=== PATIENT | male | born 2000 | race Hispanic/Latino ===

== ENCOUNTER 2018-07-10 18:42 | Emergency (ER) | payer OTHER ==
[~2018-07-10] VITALS: Ht 165.1 cm; Wt 113.4 kg
--- OUTSIDE RECORDS SUMMARY | ~2018-07-10 | XMS ---
Demographics + + + | Address | [address] [place] [address] [address] | | | [place] [address] | + + + | Home Phone | | + + + | Preferred Language | Unknown | + + + | Marital Status | Never | + + + | Holiness Affiliation | Unknown | + + + | Race | White | + + + | Ethnic Group | or | + + + Author + + + | Author | [facility] | + + + | Organization | [facility] | + + + | Address | [address] | | | [place] [address] | + + + | Phone | | + + + Care Team Providers + + + + | Care Vacuum Cleaner Mechanic Name | Role | Phone | + + + + | Nhung Escalona PCP | | + + + + | Martina Millerlaya South | PreferredProvider | | + + + + Allergies and Adverse Reactions + + + + | Name | Reaction | Notes | + + + + | Zithromax Jacqueline | | | + + + + | PENICILLINS | | | + + + + | Zithromax | Other | - [employer] 11/01/2015 | + + + + | Other Drug Allergies | Rash / Hives | PENICILLIN - [employer] | | | | 11/01/2015 | + + + + | Hay | | - [employer] 11/01/2015 | + + + + Plan of Treatment + + + + + + | Planned | Comments | Planned Date | Planned Time | Plan/Goal | | Activity | | | | | + + + + + + | Lipid panel | | 11/01/2015 | 12:00 AM | | + + + + + + | Comprehensive | | 11/01/2015 | 12:00 AM | | | metabolic panel | | | | | | This panel | | | | | | must include | | | | | | the follow | | | | | + + + + + + | Blood count; | | 11/01/2015 | 12:00 AM | | | complete (CBC), | | | | | | automated | | | | | | (Hgb, Hct, RBC, | | | | | | WBC and p | | | | | + + + + + + | Thyroxine; free | | 11/01/2015 | 12:00 AM | | + + + + + + | Thyroid | | 11/01/2015 | 12:00 AM | | | stimulating | | | | | | hormone (TSH) | | | | | + + + + + + | Insulin; total | | 11/01/2015 | 12:00 AM | | | fasting | | | | | + + + + + + | Vitamin D | | 11/01/2015 | 12:00 AM | | + + + + + + | Hemoglobin A1C | | 11/01/2015 | 12:00 AM | | + + + + + + | PULSE OXIMETRY | | 01/01/2017 | 12:00 AM | | | (1 or more | | | | | | readings) | | | | | + + + + + + Medications +---------+ | | +---------+ + + + + + + | Name | Start Date | Expiration Date | SIG | Comments | + + + + + + | amoxicillin 400 | 03/06/2010 | 03/16/2010 | take 10 | | | mg/5 mL oral | | | milliliters by | | | suspension for | | | oral route 2 | | | reconstitution | | | times a day for | | | | | | 10 days | | + + + + + + | Cortisporin | 03/27/2011 | 04/03/2011 | instill in | | | 3.5-10,000-1 | | | affected ear 3 | | | mg/mL-unit/mL-% | | | drops by otic | | | otic | | | route 3 times a | | | drops,suspensio | | | day for 7 days | | | n | | | | | + + + + + + | cephalexin 500 | 06/27/2011 | 07/07/2011 | take 1 capsule | | | mg oral capsule | | | by oral route 3 | | | | | | times a day | | | | | | for 10 days | | + + + + + + | Polytrim 10,000 | 07/23/2011 | 08/13/2011 | instill 2 drops | | | unit- 1 mg/mL | | | to L eye TID x | | | ophthalmic | | | 7 days | | | drops | | | | | + + + + + + | Bactrim 400-80 | 08/13/2011 | 08/23/2011 | take 1 tablet | | | mg oral tablet | | | by oral route 2 | | | | | | times a day | | | | | | for 10 days | | + + + + + + | acetaminophen-c | 02/09/2013 | 02/16/2013 | take 5 - 7.5mls | | | odeine 120 | | | po Qhs prn | | | mg-12 mg /5 mL | | | Cough | | | (5 mL) oral | | | | | | solution | | | | | + + + + + + | erythromycin | 04/15/2013 | 04/10/2014 | apply a thin | | | with ethanol 2 | | | layer to the | | | % topical | | | affected | | | solution | | | area(s) by | | | | | | topical route 2 | | | | | | times per day | | | | | | in the morning | | | | | | and evening | | + + + + + + | Vitamin D2 | 04/15/2013 | 06/10/2013 | take 1 capsule | | | 50,000 unit | | | by oral route | | | oral capsule | | | once weekly for | | | | | | 8 weeks | | + + + + + + | ibuprofen 600 | 09/21/2013 | 09/28/2013 | Take 1 tablet | | | mg oral tablet | | | (600 mg) by | | | | | | oral route 2 | | | | | | times daily | | | | | | with breakfast | | | | | | and dinner. | | + + + + + + | cephalexin 500 | 01/13/2015 | 01/23/2015 | take 1 tablet | | | mg oral tablet | | | by oral route 3 | | | | | | times a day | | | | | | for 10 days | | + + + + + + | Singulair 10 mg | 11/01/2015 | 01/30/2016 | take 1 tablet | | | oral tablet | | | (10 mg) by oral | | | | | | route once | | | | | | daily in the | | | | | | evening for 30 | | | | | | days | | + + + + + + | fluticasone 50 | 11/01/2015 | 01/30/2016 | inhale 1 spray | | | mcg/actuation | | | (50 mcg) in | | | nasal | | | each nostril by | | | spray,suspensio | | | intranasal | | | n | | | route once | | | | | | daily for 30 | | | | | | days | | + + + + + + | Ventolin HFA 90 | 11/01/2015 | 02/29/2016 | 2 puffs every | | | mcg/actuation | | | 4-6 hrs prn for | | | inhalation HFA | | | shortness of | | | aerosol inhaler | | | breath | | + + + + + + | cefprozil 500 | 06/26/2016 | 07/06/2016 | take 1 tablet | | | mg oral tablet | | | (500 mg) by | | | | | | oral route | | | | | | every 12 hours | | | | | | for 10 days | | + + + + + + + + | Discontinued | + + + + + + + + | Name | Start Date | Discontinued | SIG | Comments | | | | Date | | | + + + + + + | Zithromax Z-Richy | 02/05/2010 | 02/08/2010 | take 2 tablets | vomiting | | 250 mg oral | | | (500 mg) by | | | tablet | | | oral route once | | | | | | daily for 1 | | | | | | day then 1 | | | | | | tablet (250 mg) | | | | | | by oral route | | | | | | once daily for | | | | | | 4 days | | + + + + + + | Miralax 17 | 03/05/2011 | 02/04/2016 | take 17 gram | | | gram/dose oral | | | mixed with 8 | | | powder | | | oz. water or | | | | | | juice by oral | | | | | | route once | | | | | | daily | | + + + + + + | omeprazole 20 | 01/27/2013 | 02/04/2016 | take 1 capsule | | | mg oral | | | (20 mg) by oral | | | capsule,delayed | | | route twice | | | release(/EC) | | | daily 30 | | | | | | minutes to 1 | | | | | | hour before a | | | | | | meal | | + + + + + + Problem List + +--------+ + | Description | Status | Onset | + +--------+ + | Enuresis | Active | 02/05/2010 | + +--------+ + | Acne | Active | 06/10/2011 | + +--------+ + | Carpal Bone Fracture, | Active | 08/27/2011 | | Closed | | | + +--------+ + | Gastroesophageal reflux | Active | 01/27/2013 | + +--------+ + | Obesity | Active | 01/27/2013 | + +--------+ + | Irritable bowel syndrome | Active | 04/15/2013 | + +--------+ + | Costochondritis | Active | 09/21/2013 | + +--------+ + | Elevated blood pressure | Active | 02/04/2016 | + +--------+ + Vital Signs +-----+-----+-----+-----+-----+-----+-----+-----+-----+----+-----+-----+-----+-----+ | Charles | Louis | BP- | BP- | HR( | RR( | Tem | WT | HT | HC | BMI | BSA | BMI | O2 | | e | e | Sys | Debra | bpm | rpm | p | | | | | | | Sat | | | | (mm | (mm | ) | ) | | | | | | | Per | (%) | | | | [Hg | [Hg | | | | | | | | | eric | | | | | ] | ]) | | | | | | | | | til | | | | | | | | | | | | | | | e | | +-----+-----+-----+-----+-----+-----+-----+-----+-----+----+-----+-----+-----+-----+ | 10/ | 10: | 114 | 70 | 80 | 30 | 98. | 205 | | | | | | 96 | | 11/ | 00: | | mmH | bpm | rpm | 2 F | .5 | | | | | | % | | 201 | 00 | mmH | g | | | | lbs | | | | | | | | 7 | AM | g | | | | | | | | | | | | +-----+-----+-----+-----+-----+-----+-----+-----+-----+----+-----+-----+-----+-----+ | 4/5 | 11: | 128 | 72 | 108 | 22 | 98. | 190 | 65 | | 31. | 1.9 | 97. | 98 | | /20 | 41: | | mmH | | rpm | 2 F | | in | | 617 | 881 | 8 % | % | | 17 | 00 | mmH | g | bpm | | | lbs | | | 3 | | | | | | AM | g | | | | | | | | kg/ | m | | | | | | | | | | | | | | m | | | | +-----+-----+-----+-----+-----+-----+-----+-----+-----+----+-----+-----+-----+-----+ | 12/ | 11: | 128 | 72 | 83 | 30 | 99 | 182 | | | | | | 99 | | 7/2 | 22: | | mmH | bpm | rpm | F | | | | | | | % | | 016 | 00 | mmH | g | | | | lbs | | | | | | | | | AM | g | | | | | | | | | | | | +-----+-----+-----+-----+-----+-----+-----+-----+-----+----+-----+-----+-----+-----+ | 11/ | 10: | 130 | 70 | | | | | | | | | | | | 21/ | 07: | | mmH | | | | | | | | | | | | 201 | 00 | mmH | g | | | | | | | | | | | | 6 | AM | g | | | | | | | | | | | | +-----+-----+-----+-----+-----+-----+-----+-----+-----+----+-----+-----+-----+-----+ | 11/ | 9:3 | 138 | 90 | 94 | 20 | 97. | 194 | 65. | | 32. | 2.0 | 98. | 98 | | 21/ | 6:0 | | mmH | bpm | rpm | 6 F | | 25 | | 04 | 1 | 1 % | % | | 201 | 0 | mmH | g | | | | lbs | in | | kg/ | m2 | | | | 6 | AM | g | | | | | | | | m2 | | | | +-----+-----+-----+-----+-----+-----+-----+-----+-----+----+-----+-----+-----+-----+ | 11/ | 11: | 130 | 82 | 85 | 20 | 97. | 183 | 65. | | 30. | 1.9 | 97 | 97 | | 12/ | 04: | | mmH | bpm | rpm | 8 F | | 1 | | 359 | 526 | % | % | | 201 | 00 | mmH | g | | | | lbs | in | | | | | | | 6 | AM | g | | | | | | | | kg/ | m | | | | | | | | | | | | | | m | | | | +-----+-----+-----+-----+-----+-----+-----+-----+-----+----+-----+-----+-----+-----+ | 8/1 | 9:3 | 110 | 60 | 67 | 20 | 98 | 173 | 65. | | 28. | 1.9 | 94. | 99 | | 0/2 | 3:0 | | mmH | bpm | rpm | F | | 5 | | 35 | 0 | 9 % | % | | 016 | 0 | mmH | g | | | | lbs | in | | kg/ | m2 | | | | | AM | g | | | | | | | | m2 | | | | +-----+-----+-----+-----+-----+-----+-----+-----+-----+----+-----+-----+-----+-----+ | 3/9 | 11: | 106 | 70 | 80 | 28 | 98. | 173 | 65. | | 28. | 1.9 | 95. | 98 | | /20 | 10: | | mmH | bpm | rpm | 4 F | | 25 | | 568 | 007 | 6 % | % | | 16 | 00 | mmH | g | | | | lbs | in | | 2 | | | | | | AM | g | | | | | | | | kg/ | m | | | | | | | | | | | | | | m | | | | +-----+-----+-----+-----+-----+-----+-----+-----+-----+----+-----+-----+-----+-----+ | 10/ | 10: | 120 | 72 | 82 | 18 | 97. | 164 | 65. | | 27. | 1.8 | 93. | | | 23/ | 18: | | mmH | bpm | rpm | 9 F | | 35 | | 00 | 5 | 4 % | | | 201 | 00 | mmH | g | | | | lbs | in | | kg/ | m2 | | | | 5 | AM | g | | | | | | | | m2 | | | | +-----+-----+-----+-----+-----+-----+-----+-----+-----+----+-----+-----+-----+-----+ | 3/4 | 8:3 | 118 | 70 | 80 | 16 | 97. | 146 | 65. | | 24. | 1.7 | 85. | 98 | | /20 | 4:0 | | mmH | bpm | rpm | 6 F | | 25 | | 109 | 461 | 2 % | % | | 15 | 0 | mmH | g | | | | lbs | in | | 6 | | | | | | AM | g | | | | | | | | kg/ | m | | | | | | | | | | | | | | m | | | | +-----+-----+-----+-----+-----+-----+-----+-----+-----+----+-----+-----+-----+-----+ | 7/1 | 2:0 | 120 | 68 | 90 | 20 | 99. | 159 | 64. | | 26. | 1.8 | 94. | 98 | | /20 | 7:0 | | mmH | bpm | rpm | 5 F | | 9 | | 54 | 2 | 3 % | % | | 14 | 0 | mmH | g | | | | lbs | in | | kg/ | m2 | | | | | PM | g | | | | | | | | m2 | | | | +-----+-----+-----+-----+-----+-----+-----+-----+-----+----+-----+-----+-----+-----+ | 1/2 | 10: | 118 | 68 | 90 | 20 | 98. | 172 | 64. | | 28. | 1.8 | 97. | 98 | | 3/2 | 57: | | mmH | bpm | rpm | 3 F | | 7 | | 888 | 872 | 3 % | % | | 014 | 00 | mmH | g | | | | lbs | in | | | | | | | | AM | g | | | | | | | | kg/ | m | | | | | | | | | | | | | | m | | | | +-----+-----+-----+-----+-----+-----+-----+-----+-----+----+-----+-----+-----+-----+ | 11/ | 9:1 | 118 | 68 | 80 | 20 | 98. | | | | | | | 98 | | 19/ | 8:0 | | mmH | bpm | rpm | 1 F | | | | | | | % | | 201 | 0 | mmH | g | | | | | | | | | | | | 3 | AM | g | | | | | | | | | | | | +-----+-----+-----+-----+-----+-----+-----+-----+-----+----+-----+-----+-----+-----+ | 11/ | 11: | 120 | 74 | 100 | 20 | 98. | 170 | 64. | | 28. | 1.8 | 97. | 98 | | 6/2 | 24: | | mmH | | rpm | 1 F | | 5 | | 729 | 733 | 3 % | % | | 013 | 00 | mmH | g | bpm | | | lbs | in | | 5 | | | | | | AM | g | | | | | | | | kg/ | m | | | | | | | | | | | | | | m | | | | +-----+-----+-----+-----+-----+-----+-----+-----+-----+----+-----+-----+-----+-----+ | 10/ | 2:3 | | | 80 | 16 | 98. | 173 | 64 | | 29. | 1.8 | 97. | | | 8/2 | 5:0 | | | bpm | rpm | 2 F | | in | | 70 | 8 | 9 % | | | 013 | 0 | | | | | | lbs | | | kg/ | m2 | | | | | PM | | | | | | | | | m2 | | | | +-----+-----+-----+-----+-----+-----+-----+-----+-----+----+-----+-----+-----+-----+ | 5/1 | 11: | 142 | 68 | 120 | 20 | 98. | 177 | 64. | | 30. | 1.9 | 98. | 98 | | 0/2 | 46: | | mmH | | rpm | 3 F | | 3 | | 098 | 085 | 2 % | % | | 013 | 00 | mmH | g | bpm | | | lbs | in | | 8 | | | | | | AM | g | | | | | | | | kg/ | m | | | | | | | | | | | | | | m | | | | +-----+-----+-----+-----+-----+-----+-----+-----+-----+----+-----+-----+-----+-----+ | 65 | 10: | 122 | 68 | 70 | 18 | 96. | 147 | | | | | | | | /20 | 21: | | mmH | bpm | rpm | 7 F | .75 | | | | | | | | 12 | 00 | mmH | g | | | | | | | | | | | | | AM | g | | | | | lbs | | | | | | | +-----+-----+-----+-----+-----+-----+-----+-----+-----+----+-----+-----+-----+-----+ | 5 | 12: | 132 | 70 | 105 | 20 | 98. | 145 | 62 | | 26. | 1.6 | 96. | 97 | | 6/2 | 55: | | mmH | | rpm | 3 F | | in | | 520 | 962 | 5 % | % | | 012 | 00 | mmH | g | bpm | | | lbs | | | 6 | | | | | | PM | g | | | | | | | | kg/ | m | | | | | | | | | | | | | | m | | | | +-----+-----+-----+-----+-----+-----+-----+-----+-----+----+-----+-----+-----+-----+ | 5/1 | 10: | | | 60 | 16 | 98. | 142 | 62 | | 25. | 1.6 | 96 | | | /20 | 26: | | | bpm | rpm | 2 F | | in | | 97 | 8 | % | | | 12 | 00 | | | | | | lbs | | | kg/ | m2 | | | | | AM | | | | | | | | | m2 | | | | +-----+-----+-----+-----+-----+-----+-----+-----+-----+----+-----+-----+-----+-----+ | 4/5 | 11: | | | 84 | 20 | 98. | 144 | | | | | | 96 | | /20 | 26: | | | bpm | rpm | 6 F | | | | | | | % | | 12 | 00 | | | | | | lbs | | | | | | | | | AM | | | | | | | | | | | | | +-----+-----+-----+-----+-----+-----+-----+-----+-----+----+-----+-----+-----+-----+ | 3/1 | 11: | | | 100 | 20 | 99. | 140 | | | | | | 99 | | 9/2 | 25: | | | | rpm | 5 F | .5 | | | | | | % | | 012 | 00 | | | bpm | | | lbs | | | | | | | | | AM | | | | | | | | | | | | | +-----+-----+-----+-----+-----+-----+-----+-----+-----+----+-----+-----+-----+-----+ | 1/4 | 1:0 | | | 96 | 18 | 99. | 138 | | | | | | 96 | | /20 | 1:0 | | | bpm | rpm | 6 F | | | | | | | % | | 12 | 0 | | | | | | lbs | | | | | | | | | PM | | | | | | | | | | | | | +-----+-----+-----+-----+-----+-----+-----+-----+-----+----+-----+-----+-----+-----+ | 12/ | 11: | 112 | 66 | 70 | 20 | 99. | 131 | | | | | | | | 13/ | 07: | | mmH | bpm | rpm | 2 F | .75 | | | | | | | | 201 | 00 | mmH | g | | | | | | | | | | | | 1 | AM | g | | | | | lbs | | | | | | | +-----+-----+-----+-----+-----+-----+-----+-----+-----+----+-----+-----+-----+-----+ | 12/ | 1:0 | | | 95 | 20 | 99 | 135 | | | | | | 99 | | 1/2 | 4:0 | | | bpm | rpm | F | | | | | | | % | | 011 | 0 | | | | | | lbs | | | | | | | | | PM | | | | | | | | | | | | | +-----+-----+-----+-----+-----+-----+-----+-----+-----+----+-----+-----+-----+-----+ | 11/ | 3:4 | | | 92 | 16 | 99. | 134 | | | | | | 98 | | 16/ | 8:0 | | | bpm | rpm | 5 F | | | | | | | % | | 201 | 0 | | | | | | lbs | | | | | | | | 1 | PM | | | | | | | | | | | | | +-----+-----+-----+-----+-----+-----+-----+-----+-----+----+-----+-----+-----+-----+ | 4/1 | 9:5 | | | 100 | 18 | 100 | 117 | | | | | | 98 | | /20 | 3:0 | | | | rpm | F | | | | | | | % | | 11 | 0 | | | bpm | | | lbs | | | | | | | | | AM | | | | | | | | | | | | | +-----+-----+-----+-----+-----+-----+-----+-----+-----+----+-----+-----+-----+-----+ | 2/1 | 11: | 118 | 62 | 80 | 20 | 98. | 112 | | | | | | | | 1/2 | 21: | | mmH | bpm | rpm | 6 F | | | | | | | | | 011 | 00 | mmH | g | | | | lbs | | | | | | | | | AM | g | | | | | | | | | | | | +-----+-----+-----+-----+-----+-----+-----+-----+-----+----+-----+-----+-----+-----+ | 12/ | 3:2 | 108 | 62 | 80 | 16 | 98. | 108 | 55. | | 24. | 1.3 | 96 | | | 14/ | 6:0 | | mmH | bpm | rpm | 1 F | .75 | 8 | | 56 | 9 | % | | | 201 | 0 | mmH | g | | | | | in | | kg/ | m2 | | | | 0 | PM | g | | | | | lbs | | | m2 | | | | +-----+-----+-----+-----+-----+-----+-----+-----+-----+----+-----+-----+-----+-----+ | 11/ | 9:2 | | | 90 | 20 | 98. | 105 | 56 | | 23. | 1.3 | 94. | | | 15/ | 6:0 | | | bpm | rpm | 1 F | | in | | 540 | 718 | 7 % | | | 201 | 0 | | | | | | lbs | | | 3 | | | | | 0 | AM | | | | | | | | | kg/ | m | | | | | | | | | | | | | | m | | | | +-----+-----+-----+-----+-----+-----+-----+-----+-----+----+-----+-----+-----+-----+ Social History + + + + | Name | Description | Comments | + + + + | Exercises Daily | | - [employer] 11/01/2015 | + + + + | In High School | | - [employer] 11/01/2015 | + + + + | Alcohol | Current some day | - [employer] 11/01/2015 | + + + + | Other Substance Use | | NONE - [employer] 11/01/2015 | + + + + | Lives With | | cooper Mustafa (Victor)) | | | | Rosa Tolbert and Candido, | | | | José | + + + + | Tobacco | Never smoker | | + + + + History of Procedures + + + + | Date Ordered | Description | Order Status | + + + + | 06/22/2010 12:00 AM | IAATACHOADOO STREPTOCOCCUS | Reviewed | | | GROUP A | | + + + + | 05/23/2011 12:00 AM | CULTURE SCREEN ONLY | Returned | + + + + | 03/05/2011 12:00 AM | X-RAY EXAM OF ABDOMEN | Reviewed | + + + + | 05/04/2010 12:00 AM | URINALYSIS NONAUTO W/O | Reviewed | | | SCOPE | | + + + + | 05/04/2010 12:00 AM | URINE CULTURE/COLONY COUNT | Reviewed | + + + + | 06/22/2010 12:00 AM | MEASURE BLOOD OXYGEN LEVEL | Reviewed | + + + + | 03/11/2011 12:00 AM | CULTURE SCREEN ONLY | Returned | + + + + | 02/06/2011 12:00 AM | INFLUENZA 3YR & UP (VFC) | Reviewed | + + + + | 02/06/2011 12:00 AM | MEASURE BLOOD OXYGEN LEVEL | Reviewed | + + + + | 06/10/2011 12:00 AM | MEASURE BLOOD OXYGEN LEVEL | Reviewed | + + + + | 06/27/2011 12:00 AM | MEASURE BLOOD OXYGEN LEVEL | Reviewed | + + + + | 02/21/2011 12:00 AM | MEASURE BLOOD OXYGEN LEVEL | Reviewed | + + + + | 05/25/2014 12:00 AM | VISUAL ACUITY SCREEN | Reviewed | + + + + | 08/07/2011 12:00 AM | CT HEAD/BRAIN W/O DYE | Reviewed | + + + + | 08/27/2011 12:00 AM | ADAM WRAP LESS 3 IN WIDE | Reviewed | + + + + | 08/27/2011 12:00 AM | X-RAY EXAM OF HAND | Reviewed | + + + + | 08/27/2011 12:00 AM | Alexander Melgoza | Reviewed | + + + + | 07/31/2012 12:00 AM | MEASURE BLOOD OXYGEN LEVEL | Reviewed | + + + + | 05/31/2015 12:00 AM | INFLUENZA VAC 4 VALENT | Reviewed | | | PRSRV FREE 3 YRS PLUS IM | | + + + + | 05/31/2015 12:00 AM | MENINGOCOCCAL CONJ VACCINE | Reviewed | | | QUADRAVALENT IM | | + + + + | 05/31/2015 12:00 AM | HUMAN PAPILLOMA VIRUS | Reviewed | | | VACCINE QUADRIV 3 DOSE IM | | + + + + | 05/31/2015 12:00 AM | X-RAY EXAM OF ANKLE | Reviewed | + + + + | 02/05/2010 12:00 AM | INFLUENZA VIRUS VACCINE | Reviewed | | | SPLIT VIRUS 3/> YRS IM | | + + + + | 12/30/2012 12:00 AM | MEASURE BLOOD OXYGEN LEVEL | Reviewed | + + + + | 12/29/2012 12:00 AM | X-RAY EXAM OF ANKLE | Reviewed | + + + + | 01/27/2013 12:00 AM | INFLUENZA 3YR & UP (VFC) | Reviewed | + + + + | 01/27/2013 12:00 AM | ASSAY OF FREE THYROXINE | Reviewed | + + + + | 01/27/2013 12:00 AM | GLYCOSYLATED HEMOGLOBIN | Reviewed | | | TEST | | + + + + | 02/09/2013 12:00 AM | MEASURE BLOOD OXYGEN LEVEL | Reviewed | + + + + | 02/03/2016 12:00 AM | MEASURE BLOOD OXYGEN LEVEL | Reviewed | + + + + | 02/12/2016 12:00 AM | MEASURE BLOOD OXYGEN LEVEL | Reviewed | + + + + | 01/27/2013 12:00 AM | COMPREHEN METABOLIC PANEL | Reviewed | + + + + | 01/27/2013 12:00 AM | ASSAY THYROID STIM HORMONE | Reviewed | + + + + | 01/27/2013 12:00 AM | ASSAY OF INSULIN | Reviewed | + + + + | 02/29/2016 12:00 AM | MEASURE BLOOD OXYGEN LEVEL | Reviewed | + + + + | 11/01/2015 12:00 AM | HEALTH RISK ASSESSMENT TEST | Reviewed | + + + + | 11/01/2015 12:00 AM | BRIEF EMOTIONAL/BEHAV ASSMT | Reviewed | + + + + | 11/01/2015 12:00 AM | Meningococcal B (VFC) | Reviewed | + + + + | 11/01/2015 12:00 AM | HUMAN PAPILLOMA VIRUS | Reviewed | | | VACCINE QUADRIV 3 DOSE IM | | + + + + | 01/27/2013 12:00 AM | FLUORESCENT ANTIBODY TITER | Reviewed | + + + + | 01/27/2013 12:00 AM | VITAMIN D 25 HYDROXY | Reviewed | + + + + | 06/26/2016 12:00 AM | MEASURE BLOOD OXYGEN LEVEL | Reviewed | + + + + | 01/27/2013 12:00 AM | LIPID PANEL | Reviewed | + + + + | 01/27/2013 12:00 AM | COMPLETE CBC W/AUTO DIFF | Reviewed | | | WBC | | + + + + | 01/27/2013 12:00 AM | FLUORESCENT ANTIBODY SCREEN | Reviewed | + + + + | 03/11/2011 12:00 AM | IAADIADOO STREPTOCOCCUS | Reviewed | | | GROUP A | | + + + + | 01/27/2013 12:00 AM | IMMUNOASSAY NONANTIBODY | Reviewed | + + + + | 09/21/2013 12:00 AM | MEASURE BLOOD OXYGEN LEVEL | Reviewed | + + + + | 05/23/2011 12:00 AM | IAADIADOO STREPTOCOCCUS | Reviewed | | | GROUP A | | + + + + | 03/06/2010 12:00 AM | MENINGOCOCCAL CONJ VACCINE | Reviewed | | | QUADRAVALENT IM | | + + + + Results Summary + + + | Date and Description | Results | + + + | 05/04/2010 12:00 AM | RESULT #1 05/05/2010 AM RESULT #1 no | | | growth after overnight incubation RESULT | | | #2 05/06/2010 AM RESULT #2 no growth after | | | 2 days incubation | + + + | 01/28/2013 8:57 AM | CHOLESTEROL 197 TRIGLYCERIDES 105 HDL 39.5 | | | LDL 137 VLDL 21 CHOL/HDL 5.0 NON-HDL CHOL | | | 158 FREE T4 1.32 TSH, 3rd GEN. 1.70 | | | SODIUM 140 POTASSIUM 4.0 CHLORIDE 103 | | | CARBON DIOXIDE 22 ANION GAP 19.0 GLUCOSE | | | 92 UREA NITROGEN 14 CREATININE, SERUM 0.82 | | | GFR ESTIMATION NOT PERFORMED | | | BUN/CREAT.RATIO 17.1 CALCIUM 9.7 AST(SGOT) | | | 22 ALT(SGPT) 19 ALKALINE PHOS 165 | | | BILIRUBIN, TOTAL 0.7 PROTEIN 7.1 ALBUMIN | | | 4.6 GLOBULIN 2.5 A/G RATIO 1.8 HEMOGLOBIN | | | A1C 5.6 EST AVG GLUCOSE 114 INSULIN, | | | FASTING 14.55 VITAMIN D 25-OH 16 WBC 5.4 | | | RBC 5.57 HEMOGLOBIN 15.5 HEMATOCRIT 45.5 | | | MCV 81.6 RDW 14.1 MCH 28 MCHC 34 PLATELET | | | COUNT 222 NEUTROPHILS 54.7 LYMPHOCYTES | | | 33.4 MONOCYTES 6.1 EOSINOPHILS 5.3 | | | BASOPHILS 0.5 tTG SCREEN 3 ENDOMYSIAL IgA | | | NOT DONE RETICULIN SCREEN <1:5 RETICULIN | | | AB, IgA Not Done GLIADIN AB, IgG 2 GLIADIN | | | AB, IgA >100 | + + + History Of Immunizations +-------+-------+-------+------+-------+-------+-------+-------+-------+-------+-----+ | Name | Date | Mfg | Mfg | Trade | Lot# | Route | Inj | Vis | Vis | CVX | | | Admin | Name | Code | Name | | | | Given | Pub | | +-------+-------+-------+------+-------+-------+-------+-------+-------+-------+-----+ | DTaP | 10/13/ | Not | NE | Not | | Not | Not | | | 999 | | | 1999 | Enter | | Enter | | Enter | Enter | 001 | 001 | | | | | ed | | ed | | ed | ed | | | | +-------+-------+-------+------+-------+-------+-------+-------+-------+-------+-----+ | DTaP | 07/09/ | Not | NE | Not | | Not | Not | 0 | | 999 | | | 2000 | Enter | | Enter | | Enter | Enter | 001 | 001 | | | | | ed | | ed | | ed | ed | | | | +-------+-------+-------+------+-------+-------+-------+-------+-------+-------+-----+ | DTaP | 08/06/ | Not | NE | Not | | Not | Not | | | 999 | | | 2000 | Enter | | Enter | | Enter | Enter | 001 | 001 | | | | | ed | | ed | | ed | ed | | | | +-------+-------+-------+------+-------+-------+-------+-------+-------+-------+-----+ | DTaP | 04/08/ | Not | NE | Not | | Not | Not | | | 999 | | | 2001 | Enter | | Enter | | Enter | Enter | 001 | 001 | | | | | ed | | ed | | ed | ed | | | | +-------+-------+-------+------+-------+-------+-------+-------+-------+-------+-----+ | DTaP | | Not | NE | Not | | Not | Not | | | 999 | | | 002 | Enter | | Enter | | Enter | Enter | 001 | 001 | | | | | ed | | ed | | ed | ed | | | | +-------+-------+-------+------+-------+-------+-------+-------+-------+-------+-----+ | Tdap | | Not | NE | Not | | Not | Not | | | 999 | | | 009 | Enter | | Enter | | Enter | Enter | 001 | 001 | | | | | ed | | ed | | ed | ed | | | | +-------+-------+-------+------+-------+-------+-------+-------+-------+-------+-----+ | Hib | 10/13/ | Not | NE | Not | | Not | Not | 0 | | 999 | | | 1999 | Enter | | Enter | | Enter | Enter | 001 | 001 | | | | | ed | | ed | | ed | ed | | | | +-------+-------+-------+------+-------+-------+-------+-------+-------+-------+-----+ | Hib | 07/09/ | Not | NE | Not | | Not | Not | 0 | | 999 | | | 2000 | Enter | | Enter | | Enter | Enter | 001 | 001 | | | | | ed | | ed | | ed | ed | | | | +-------+-------+-------+------+-------+-------+-------+-------+-------+-------+-----+ | Hib | 08/06/ | Not | NE | Not | | Not | Not | | | 999 | | | 2000 | Enter | | Enter | | Enter | Enter | 001 | 001 | | | | | ed | | ed | | ed | ed | | | | +-------+-------+-------+------+-------+-------+-------+-------+-------+-------+-----+ | Hib | 04/08/ | Not | NE | Not | | Not | Not | | | 999 | | | 2001 | Enter | | Enter | | Enter | Enter | 001 | 001 | | | | | ed | | ed | | ed | ed | | | | +-------+-------+-------+------+-------+-------+-------+-------+-------+-------+-----+ | HepB | | Not | NE | Not | | Not | Not | | | 999 | | | 999 | Enter | | Enter | | Enter | Enter | 001 | 001 | | | | | ed | | ed | | ed | ed | | | | +-------+-------+-------+------+-------+-------+-------+-------+-------+-------+-----+ | HepB | 10/13/ | Not | NE | Not | | Not | Not | | | 999 | | | 1999 | Enter | | Enter | | Enter | Enter | 001 | 001 | | | | | ed | | ed | | ed | ed | | | | +-------+-------+-------+------+-------+-------+-------+-------+-------+-------+-----+ | HepB | 07/09/ | Not | NE | Not | | Not | Not | | | 999 | | | 2000 | Enter | | Enter | | Enter | Enter | 001 | 001 | | | | | ed | | ed | | ed | ed | | | | +-------+-------+-------+------+-------+-------+-------+-------+-------+-------+-----+ | IPV | 10/13/ | Not | NE | Not | | Not | Not | | | 999 | | | 1999 | Enter | | Enter | | Enter | Enter | 001 | 001 | | | | | ed | | ed | | ed | ed | | | | +-------+-------+-------+------+-------+-------+-------+-------+-------+-------+-----+ | IPV | 07/09/ | Not | NE | Not | | Not | Not | | | 999 | | | 2000 | Enter | | Enter | | Enter | Enter | 001 | 001 | | | | | ed | | ed | | ed | ed | | | | +-------+-------+-------+------+-------+-------+-------+-------+-------+-------+-----+ | IPV | 08/06/ | Not | NE | Not | | Not | Not | | | 999 | | | 2000 | Enter | | Enter | | Enter | Enter | 001 | 001 | | | | | ed | | ed | | ed | ed | | | | +-------+-------+-------+------+-------+-------+-------+-------+-------+-------+-----+ | IPV | | Not | NE | Not | | Not | Not | | | 999 | | | 002 | Enter | | Enter | | Enter | Enter | 001 | 001 | | | | | ed | | ed | | ed | ed | | | | +-------+-------+-------+------+-------+-------+-------+-------+-------+-------+-----+ | MMR | 08/06/ | Not | NE | Not | | Not | Not | | | 999 | | | 2000 | Enter | | Enter | | Enter | Enter | 001 | 001 | | | | | ed | | ed | | ed | ed | | | | +-------+-------+-------+------+-------+-------+-------+-------+-------+-------+-----+ | MMR | | Not | NE | Not | | Not | Not | | | 999 | | | 003 | Enter | | Enter | | Enter | Enter | 001 | 001 | | | | | ed | | ed | | ed | ed | | | | +-------+-------+-------+------+-------+-------+-------+-------+-------+-------+-----+ | Varic | 08/06/ | Not | NE | Not | | Not | Not | 0 | 0 | 999 | | promise | 2000 | Enter | | Enter | | Enter | Enter | 001 | 001 | | | | | ed | | ed | | ed | ed | | | | +-------+-------+-------+------+-------+-------+-------+-------+-------+-------+-----+ | Varic | 06/03/ | Not | NE | Not | | Not | Not | | | 999 | | promise | 2007 | Enter | | Enter | | Enter | Enter | 001 | 001 | | | | | ed | | ed | | ed | ed | | | | +-------+-------+-------+------+-------+-------+-------+-------+-------+-------+-----+ | Hep A | | Not | NE | Not | | Not | Not | 0 | | 999 | | | 002 | Enter | | Enter | | Enter | Enter | 001 | 001 | | | | | ed | | ed | | ed | ed | | | | +-------+-------+-------+------+-------+-------+-------+-------+-------+-------+-----+ | Hep A | | Not | NE | Not | | Not | Not | 0 | | 999 | | | 003 | Enter | | Enter | | Enter | Enter | 001 | 001 | | | | | ed | | ed | | ed | ed | | | | +-------+-------+-------+------+-------+-------+-------+-------+-------+-------+-----+ | Prevn | | Not | NE | Not | | Not | Not | 0 | | 999 | | ar | 002 | Enter | | Enter | | Enter | Enter | 001 | 001 | | | | | ed | | ed | | ed | ed | | | | +-------+-------+-------+------+-------+-------+-------+-------+-------+-------+-----+ | Rotav | | Not | NE | Not | | Not | Not | 0 | | 999 | | irus | 999 | Enter | | Enter | | Enter | Enter | 001 | 001 | | | | | ed | | ed | | ed | ed | | | | +-------+-------+-------+------+-------+-------+-------+-------+-------+-------+-----+ | Rotav | | Not | NE | Not | | Not | Not | 0 | | 999 | | irus | 999 | Enter | | Enter | | Enter | Enter | 001 | 001 | | | | | ed | | ed | | ed | ed | | | | +-------+-------+-------+------+-------+-------+-------+-------+-------+-------+-----+ | Rotav | 02/05 | Not | NE | Not | | Not | Not | | | 999 | | irus | /2009 | Enter | | Enter | | Enter | Enter | 001 | 001 | | | | | ed | | ed | | ed | ed | | | | +-------+-------+-------+------+-------+-------+-------+-------+-------+-------+-----+ | Flu | 15 | CSL | CSL | Fluzo | [id number] | Intra | Left | 02/05 | 10/31/ | 999 | | 3+ | /2009 | Bioth | | ne > | 8 | muscu | Thigh | | 2009 | | | years | | erapi | | 3 | | lar | | | | | | | | es, | | Years | | | | | | | | | | Inc. | | | | | | | | | +-------+-------+-------+------+-------+-------+-------+-------+-------+-------+-----+ | Menac | 03/06 | sanof | PMC | Menac | [id number] | Intra | Left | 03/06 | 12/28/ | 999 | | tra | | i | | tra | AA | muscu | Delto | | 2004 | | | | | paste | | | | lar | id | | | | | | | ur | | | | | | | | | +-------+-------+-------+------+-------+-------+-------+-------+-------+-------+-----+ | Flu | 02/06 | sanof | PMC | Fluzo | [id number] | Intra | Left | 02/06 | 10/16/ | 141 | | 3+ | /2010 | i | | ne > | AA | muscu | Delto | /2010 | 2010 | | | years | | paste | | 3 | | lar | id | | | | | | | ur | | Years | | | | | | | +-------+-------+-------+------+-------+-------+-------+-------+-------+-------+-----+ | Flu | 01/27/ | sanof | PMC | Fluzo | [id number] | Intra | Left | 01/27/ | 10/16/ | 141 | | 3+ | 2012 | i | | ne > | AA | muscu | Arm | 2012 | 2012 | | | years | | paste | | 3 | | lar | | | | | | | | ur | | Years | | | | | | | +-------+-------+-------+------+-------+-------+-------+-------+-------+-------+-----+ | HPV | | Merck | MSD | GARDA | [id number] | Intra | Right | | 08/07/ | 62 | | | 016 | & | | LILY | 66 | muscu | | 016 | 2012 | | | | | Co., | | | | lar | Upper | | | | | | | Inc. | | | | | | | | | | | | | | | | | Delto | | | | | | | | | | | | id | | | | +-------+-------+-------+------+-------+-------+-------+-------+-------+-------+-----+ | Menac | | sanof | PMC | Menac | [id number] | Intra | Left | | 01/04 | 136 | | tra | 016 | i | | tra | BA | muscu | Delto | 016 | /2010 | | | | | paste | | | | lar | id | | | | | | | ur | | | | | | | | | +-------+-------+-------+------+-------+-------+-------+-------+-------+-------+-----+ | Flu | | sanof | PMC | Fluzo | [id number] | Intra | Right | | | 150 | | 3+ | 016 | i | | ne | AB | muscu | | 016 | 015 | | | years | | paste | | Quadr | | lar | Lower | | | | | | | ur | | ivale | | | | | | | | | | | | nt | | | Delto | | | | | | | | | | | | id | | | | +-------+-------+-------+------+-------+-------+-------+-------+-------+-------+-----+ | Trume | 10/31/ | Pfize | PFR | Trume | [id number] | Intra | Left | 10/31/ | 11/04/ | 162 | | chetan | 2016 | r, | | chetan | 1 | muscu | Delto | 2015 | 2015 | | | MenB | | Inc. | | | | lar | id | | | | +-------+-------+-------+------+-------+-------+-------+-------+-------+-------+-----+ | HPV | 10/31/ | Merck | MSD | GARDA | [id number] | Intra | Right | 10/31/ | 08/07/ | 62 | | | 2016 | & | | LILY | 66 | muscu | | 2016 | 2012 | | | | | Co., | | | | lar | Delto | | | | | | | Inc. | | | | | id | | | | +-------+-------+-------+------+-------+-------+-------+-------+-------+-------+-----+ History of Past Illness + + + + | Name | Date of Onset | Comments | + + + + | Influenza 3YR & UP | Feb 05 2010 9:28AM | | + + + + | Right Otitis Media, Acute | Feb 05 2010 9:28AM | | | Suppurative | | | + + + + | Enuresis | Feb 05 2010 9:28AM | | + + + + | Well Child Check | Mar 06 2010 3:17PM | | + + + + | Menactra | Mar 06 2010 3:17PM | | + + + + | Right Otitis Media, Acute | Mar 06 2010 3:17PM | | + + + + | Otitis Media, Acute | | | + + + + | Strep throat | | | + + + + | Sinusitis, Acute | | | + + + + | Vision problems | | | + + + + | Methicillin resistant | | | | Staphylococcus aureus | | | + + + + | Enuresis | 02/05/2010 | | + + + + | Candidiasis, Urogenital | May 04 2010 11:22AM | | | Sites | | | + + + + | Pharyngitis, Streptococcal | Jun 22 2010 9:54AM | | + + + + | Bronchitis, Acute | 06/10/2011 | | + + + + | Acne | 06/10/2011 | | + + + + | Carpal Bone Fracture, | 08/27/2011 | | | Closed | | | + + + + | Influenza 3YR & UP | Feb 06 2011 3:50PM | | + + + + | Sinusitis, Acute | Feb 06 2011 3:50PM | | + + + + | Abrasions | Feb 21 2011 1:02PM | | + + + + | Contusion, finger | Feb 21 2011 1:02PM | | + + + + | Abdominal Pain, Generalized | Mar 05 2011 11:08AM | | + + + + | Constipation | Mar 05 2011 11:08AM | | + + + + | Pharyngitis, Acute | Mar 11 2011 1:39PM | | + + + + | Right Otitis Externa | Mar 27 2011 1:01PM | | + + + + | Pharyngitis, Acute | May 23 2011 4:04PM | | + + + + | Gastroesophageal reflux | 01/27/2013 | | + + + + | Obesity | 01/27/2013 | | + + + + | Bronchitis, Acute | Jun 10 2011 11:25AM | | + + + + | Acne | Jun 10 2011 11:25AM | | + + + + | Left Otitis Media, Acute | Jun 27 2011 11:27AM | | + + + + | Irritable bowel syndrome | 04/15/2013 | | + + + + | Left Conjunctivitis, Acute | Jul 23 2011 10:19AM | | + + + + | Allergic Rhinitis | Jul 23 2011 10:19AM | | + + + + | Costochondritis | 09/21/2013 | | + + + + | Headache | Aug 07 2011 12:49PM | | + + + + | Carpal Bone Fracture, | Aug 27 2011 10:23AM | | | Closed | | | + + + + | Elevated blood pressure | 02/04/2016 | | + + + + | Left Otitis Media, Acute | Jul 31 2012 11:37AM | | + + + + | Ankle Sprain/Strain | Dec 29 2012 2:21PM | | + + + + | Well Child Check | Jan 27 2013 10:07AM | | + + + + | Influenza 3YR & UP | Jan 27 2013 10:07AM | | + + + + | Eustachian Tube Dysfunction | Jan 27 2013 10:07AM | | + + + + | Gastroesophageal Reflux | Jan 27 2013 10:07AM | | + + + + | Obesity | Jan 27 2013 10:07AM | | + + + + | Sinusitis, Acute | Feb 09 2013 9:16AM | | + + + + | Irritable Bowel Syndrome | Apr 15 2013 10:57AM | | + + + + | Acne | Apr 15 2013 10:57AM | | + + + + | Obesity | Apr 15 2013 10:57AM | | + + + + | Costochondritis | Sep 21 2013 2:07PM | | + + + + | Well Child Check | May 25 2014 8:24AM | | + + + + | Vision Screening | May 25 2014 8:24AM | | + + + + | Infection of Skin | Jan 13 2015 10:17AM | | + + + + | Ingrown right big toenail | Jan 13 2015 10:17AM | | + + + + | Influenza 3YR & UP | May 31 2015 10:59AM | | + + + + | Menactra 11 & UP | May 31 2015 10:59AM | | + + + + | HPV | May 31 2015 10:59AM | | + + + + | Ankle sprain | May 31 2015 10:59AM | | + + + + | Substance Use Screen | Nov 01 2015 9:11AM | | | (CRAFFT) | | | + + + + | Depression Screen (PHQ-A) | Nov 01 2015 9:11AM | | + + + + | Trumenba | Nov 01 2015 9:11AM | | + + + + | HPV | Nov 01 2015 9:11AM | | + + + + | Well Child Check with | Nov 01 2015 9:11AM | | | abnormal findings | | | + + + + | Allergic rhinitis | Nov 01 2015 9:11AM | | + + + + | Reactive airway disease | Nov 01 2015 9:11AM | | | with wheezing, mild | | | | intermittent, uncomplicated | | | + + + + | Fatigue | Nov 01 2015 9:11AM | | + + + + | Otitis Media, Bilateral | Feb 03 2016 10:54AM | | + + + + | Upper Respiratory Infection | Feb 03 2016 10:54AM | | + + + + | Elevated blood pressure | Feb 03 2016 10:54AM | | + + + + | Elevated blood pressure | Feb 12 2016 9:22AM | | + + + + | Lump of ear | Feb 12 2016 9:22AM | | + + + + | Upper respiratory infection | Feb 12 2016 9:22AM | | | - improving | | | + + + + | Otitis media - bilateral | Feb 12 2016 9:22AM | | | (resolved) | | | + + + + | Elevated blood pressure - | Feb 28 2016 11:15AM | | | resolved | | | + + + + | Sinusitis, Acute | Jun 26 2016 11:33AM | | + + + + | Upper Respiratory Infection | Jan 01 2017 9:51AM | | + + + + Payers + + + + + +---------+ + | Insurance | Company | Plan Name | Plan | Policy | Policy | Start Date | | Name | Name | | Number | Number | Group | | | | | | | | Number | | + + + + + +---------+ + | | [employer] | [employer] | [id number] | [id number] | | N/A | | | | | | | | | | | Health/ohp | | | | | | + + + + + +---------+ + | | Family | Family | | [id number] | | N/A | | | Care | Care | | | | | + + + + + +---------+ + | | Dmap | Dmap | | [id number] | | Friday, | | | | | | | | June 22, | | | | | | | | 2010 | + + + + + +---------+ + History of Encounters + + + + | Visit Date | Visit Type | Provider | + + + + | 01/01/2017 | Same Day Appt | Nhung HAMM | + + + + | 06/26/2016 | Same Day Appt | Nhung Escalona FILLER SHREDDER MACHINE | + + + + | 02/28/2016 | Office Visit | Nhung Escalona FILLER SHREDDER MACHINE | + + + + | 02/12/2016 | Office Visit | Nhung Escalona FILLER SHREDDER MACHINE | + + + + | 02/03/2016 | Day Appt | Nhung Escalona FILLER SHREDDER MACHINE | + + + + | 11/01/2015 | Chelsea CHAVEZ | Michelle Santiago FILLER SHREDDER MACHINE | + + + + | 05/31/2015 | Office Visit | | + + + + | 05/31/2015 | Office Visit | Nhung L. Rosselle FILLER SHREDDER MACHINE | + + + + | 01/13/2015 | Acute Illness | Yumi Duarte MD | + + + + | 05/25/2014 | Well Child Check | Nhung TURKP | + + + + | 09/21/2013 | Office Visit | Nhung HAMM | + + + + | 04/15/2013 | Office Visit | Jody Miller MD | + + + + | 02/09/2013 | Acute Illness | Michelle HAMM | + + + + | 01/27/2013 | Well Child Check | Jody Miller MD | + + + + | 12/29/2012 | Acute Illness | Michelle TriplettGallo TURKP | + + + + | 07/31/2012 | Acute Illness | Jody Miller MD | + + + + | 08/27/2011 | Acute Illness | Nhung HAMM | + + + + | 08/07/2011 | Acute Illness | Michelle TriplettGallo TURKP | + + + + | 07/23/2011 | Acute Illness | Michelle TriplettGallo TURKP | + + + + | 06/27/2011 | Acute Illness | Nhung HAMM | + + + + | 06/10/2011 | Acute Illness | Yumi Duarte MD | + + + + | 05/23/2011 | Walk In | Nurse Nurse | + + + + | 03/27/2011 | Day Appt | Jody Miller MD | + + + + | 03/11/2011 | Walk In | Nurse Nurse | + + + + | 03/05/2011 | Acute Illness | Nhung HAMM | + + + + | 02/21/2011 | Acute Illness | Nhung HAMM | + + + + | 02/06/2011 | Office Visit | Michelle HAMM | + + + + | 06/22/2010 | Acute Illness | Yumi Duarte MD | + + + + | 05/04/2010 | Acute Illness | Yumi Duarte MD | + + + + | 03/06/2010 | Well Child Check | Jody Miller MD | + + + + | 02/05/2010 | Acute Illness | Nhung HAMM | + + + +"
--- OUTSIDE RECORDS SUMMARY | ~2018-07-10 | XMS ---
Demographics + + + | Address | [address] [place] [address] [address] | | | [place] [address] | + + + | Home Phone [...] + | Organization | [facility] | + + + | Address | [address] | | | [place] [address] | + + + | Phone | | + + + Care Team Providers + + + + | Care Continuous Weld Pipe Mill Supervisor Name | Role | Phone | + [...] | | route twice | | | release(DR/EC) | | | daily 30 | | [...] | | + +--------+ + | Gastroesophageal Reflux | Active | 01/27/2013 | + +--------+ [...] | | e | | +-----+-----+-----+-----+-----+-----+-----+-----+-----+----+-----+-----+-----+-----+ | 4/5 | 11: | 128 | 72 | 108 | 22 | 98. | 190 | 65 | | 31. | 1.9 | 97. | 98 | | /20 | 41: | | mmH | | rpm | 2 F | | in | | 62 | 9 | 8 % | % | | 17 | 00 | mmH | g | bpm | | | lbs | | | kg/ | m2 | | | | | AM | g | | | | | | | | m2 | | | | +-----+-----+-----+-----+-----+-----+-----+-----+-----+----+-----+-----+-----+-----+ | 12/ [...] 6 F | | 25 | | 036 | 128 | 1 % | % | | 201 | 0 | mmH | g | | | | lbs | in | | 1 | | | | | 6 | [...] 8 F | | 1 | | 36 | 5 | % | % | | 201 | 00 | mmH | g | | | | lbs | in | | kg/ | m2 | | | | 6 | AM | g | | | | | | | | m2 | | | | +-----+-----+-----+-----+-----+-----+-----+-----+-----+----+-----+-----+-----+-----+ | 8/1 | 9:3 | 110 | 60 | 67 | 20 | 98 | 173 | 65. | | 28. | 1.9 | 94. | 99 | | 0/2 | 3:0 | | mmH | bpm | rpm | F | | 5 | | 350 | 043 | 9 % | % | | [...] m | | | | +-----+-----+-----+-----+-----+-----+-----+-----+-----+----+-----+-----+-----+-----+ | 3/9 | 11: | 106 | 70 | 80 | 28 | 98. | 173 | 65. | | 28. | 1.9 | 95. | 98 | | /20 | 10: | | mmH | bpm | rpm | 4 F | | 25 | | 57 | 0 | 6 % | % | | 16 | 00 | mmH | g | | | | lbs | in | | kg/ | m2 | | | | | AM | g | | | | | | | | m2 | | | | +-----+-----+-----+-----+-----+-----+-----+-----+-----+----+-----+-----+-----+-----+ | 10/ | 10: | 120 | 72 | 82 | 18 | 97. | 164 | 65. | | 26. | 1.8 | 93. | | | 23/ | 18: | | mmH | bpm | rpm | 9 F | | 35 | | 999 | 52 | 4 % | | | 201 | 00 | mmH | g | | | | lbs | in | | 2 | m | | | | 5 | AM | g | | | | | | | | kg/ | | | | | | | | | | | | | | | m | | | | +-----+-----+-----+-----+-----+-----+-----+-----+-----+----+-----+-----+-----+-----+ | 3/4 | 8:3 | 118 | 70 | 80 | 16 | 97. | 146 | 65. | | 24. | 1.7 | 85. | 98 | | /20 | 4:0 | | mmH | bpm | rpm | 6 F | | 25 | | 11 | 5 | 2 % | % | | 15 | 0 | mmH | g | | | | lbs | in | | kg/ | m2 | | | | | AM | g | | | | | | | | m2 | | | | +-----+-----+-----+-----+-----+-----+-----+-----+-----+----+-----+-----+-----+-----+ | 7/1 | 2:0 | 120 | 68 | 90 | 20 | 99. | 159 | 64. | | 26. | 1.8 | 94. | 98 | | /20 | 7:0 | | mmH | bpm | rpm | 5 F | | 9 | | 540 | 173 | 3 % | % | | 14 | 0 | mmH | g | | | | lbs | in | | 3 | | | | | | PM | g | | | | | | | | kg/ | m | | | | | | | | | | | | | | m | | | | +-----+-----+-----+-----+-----+-----+-----+-----+-----+----+-----+-----+-----+-----+ | 1/2 | 10: | 118 | 68 | 90 | 20 | 98. | 172 | 64. | | 28. | 1.8 | 97. | 98 | | 3/2 | 57: | | mmH | bpm | rpm | 3 F | | 7 | | 89 | 9 | 3 % | % | | [...] 1 F | | 5 | | 73 | 7 | 3 % | % | | 013 | 00 | mmH | g | bpm | | | lbs | in | | kg/ | m2 | | | | | AM | g | | | | | | | | m2 | | | | +-----+-----+-----+-----+-----+-----+-----+-----+-----+----+-----+-----+-----+-----+ | 10/ | 2:3 | | | 80 | 16 | 98. | 173 | 64 | | 29. | 1.8 | 97. | | | 8/2 | 5:0 | | | bpm | rpm | 2 F | | in | | 695 | 824 | 9 % | | | 013 | 0 | | | | | | lbs | | | 1 | | | | | | PM [...] 3 F | | 3 | | 10 | 1 | 2 % | % | | 013 | 00 | mmH | g | bpm | | | lbs | in | | kg/ | m2 | | | | | AM | g | | | | | | | | m2 | | | | +-----+-----+-----+-----+-----+-----+-----+-----+-----+----+-----+-----+-----+-----+ | 6/5 | 10: | 122 | 68 | [...] | | | | | +-----+-----+-----+-----+-----+-----+-----+-----+-----+----+-----+-----+-----+-----+ | 5/1 | 12: | 132 | 70 | 105 | 20 | 98. | 145 | 62 | | 26. | 1.7 | 96. | 97 | | 6/2 | 55: | | mmH | | rpm | 3 F | | in | | 52 | 0 | 5 % | % | | [...] 2 F | | in | | 971 | 786 | % | | | 12 | 00 | | | | | | lbs | | | 9 | | | | | | AM | | | | | | | | | kg/ | m | | | | | | | | | | | | | | m | | | | +-----+-----+-----+-----+-----+-----+-----+-----+-----+----+-----+-----+-----+-----+ | 4/5 [...] + + | 06/22/2010 12:00 AM | IAADIADOO STREPTOCOCCUS | Reviewed [...] + + | 08/27/2011 12:00 AM | Colles Splint | Reviewed | + + + + [...] + + | 03/11/2011 12:00 AM | SANDRINE STREPTOCOCCUS | Reviewed | | | GROUP A | | + + + + | 01/27/2013 12:00 AM | IMMUNOASSAY NONANTIBODY | Reviewed | + + + + | 09/21/2013 12:00 AM | MEASURE BLOOD OXYGEN LEVEL | Reviewed | + + + + | 05/23/2011 12:00 AM | IAADOMENICO STREPTOCOCCUS | Reviewed | | | GROUP [...] 0 | | 999 | | | 2001 [...] | | 999 | | promise | 2000 | Enter | | Enter | | Enter | Enter | 001 | 001 | | | | | ed | | ed | | ed | ed | | | | +-------+-------+-------+------+-------+-------+-------+-------+-------+-------+-----+ | Varic | 06/03/ | Not | NE | Not | | Not | Not | | | 999 | | promise | 2008 | Enter | | Enter | | [...] | | 999 | | irus | | Enter | | Enter | | Enter | Enter | 001 | 001 | | | | | ed | | ed | | ed | ed | | | | +-------+-------+-------+------+-------+-------+-------+-------+-------+-------+-----+ | Flu | 02/05 | CSL | CSL | Fluzo | [id number] | Intra | Left | 02/05 | 10/31/ | 999 | | 3+ | | Bioth | | ne > | [...] AA | muscu | Delto | | 2005 | | | | | paste | [...] AA | muscu | Delto | | 2010 | | | years | [...] | muscu | Delto | 016 | | | | | | paste | [...] | Intra | Left | 10/31/ | 8/14/ | 162 | | chetan | 2016 | r, | | chetan | 1 | muscu | Delto | 2015 | 2014 | | | MenB | | Inc. [...] + + + | Gastroesophageal Reflux | 01/27/2013 | | + + + [...] Nov 01 2015 9:11AM | | | (ELISABETHT) | | | + + + + [...] 11:33AM | | + + + + Payers [...] + | | [employer] | [employer] | [id number] | [id number] | | N/A | | | | | | | | | | | Health/ohp | | | | | | + + + + + +---------+ + | | Family | Family | | [id number] | | N/A | | | Care | Care | | | | | + + + + + +---------+ + | | Dmap | Dmap | | [id number] | | Friday, | | | | | | | | June 22, | | | | | | | | 2010 | + + + + + +---------+ + History of Encounters + + + + | Visit Date | Visit Type | Provider | + + + + | 06/26/2016 | Day Appt | Nhung Escalona NORIS | + + + + | 02/28/2016 | Office Visit | Nhung Escalona STEAM CLEANING MACHINE OPERATOR | + + + + | 02/12/2016 | Office Visit | Nhung Escalona STEAM CLEANING MACHINE OPERATOR | + + + + | 02/03/2016 | Day Appt | Nhung Escalona STEAM CLEANING MACHINE OPERATOR | + + + + | 11/01/2015 | Chelsea CHAVEZ | Michelle Santiago STEAM CLEANING MACHINE OPERATOR | + + + + | 05/31/2015 | Office Visit | | + + + + | 05/31/2015 | Office Visit | Nhung HAMM | + + + + | 01/13/2015 | Acute Illness | Yumi Duarte MD | + + + + | 05/25/2014 | Well Child Check | Nhung HAMM | + + + + | 09/21/2013 [...] | 12/29/2012 | Acute Illness | Michelle Isaiah TURKP | + + + + | 07/31/2012 | Acute Illness | Jody Miller MD | + + + + | 08/27/2011 | Acute Illness | Nhung HAMM | + + + + | 08/07/2011 | Acute Illness | Michelle TURKP | + + + + | 07/23/2011 | Acute Illness | Michelle TURKP | + + + + | 06/27/2011 | Acute Illness | Nhung HAMM | + + + + | 06/10/2011 | Acute Illness | Yumi Duarte MD | + + + + | 05/23/2011 | Walk In | Nurse Nurse | + + + + | 03/27/2011 | Appt | Jody Miller MD | + + + + | 03/11/2011 | Walk In | Nurse Nurse | + + + + | 03/05/2011 | Acute Illness | Nhung Escalona STEAM CLEANING MACHINE OPERATOR | + + + + | 02/21/2011 | Acute Illness | Nhung Escalona STEAM CLEANING MACHINE OPERATOR | + + + + | 02/06/2011 [...]
[~2018-07-10 18:42] MED LIST: IBUPROFEN600 MG PO; ROBAXIN-750750 MG PO
[2018-07-10] MEDS ORDERED: SUDOGEST30 MG PO (19:17)
[2018-07-10] MEDS ORDERED: LEVAQUIN750 MG PO (20:53)
== END 2018-07-10 21:56 | disposition home or self-care (01) ==
LOC: ED 18:42
DX: A41.9 Sepsis, unspecified organism (principal); J18.9 Pneumonia, unspecified organism; Z90.89 Acquired absence of other organs; Z88.0 Allergy status to penicillin; Z88.1 Allergy status to other antibiotic agents
CPT/HCPCS: 71046; 80053; 83605; 85025; 87081; 87502; 87880; 96365; 99283-25; J0696

== ENCOUNTER 2024-06-16 11:35 | Emergency (ER) | payer OTHER ==
[~2024-06-16] VITALS: Ht 165.1 cm; Wt 90.6 kg
[~2024-06-16 11:35] MED LIST changes: +LEVAQUIN750 MG PO; +SUDOGEST30 MG PO
[2024-06-16] MEDS ORDERED: OMEPRAZOLE20 MG PO (11:47)
[2024-06-16] MEDS ORDERED: DICLOFENAC SOD100 MG PO (11:47)
[2024-06-16] MEDS ORDERED: LOSARTAN POTAS100 MG PO (11:47)
[2024-06-16] MEDS ORDERED: ROSUVASTATIN CA40 MG PO (11:48)
[2024-06-16] MEDS ORDERED: SODIUM CHLORIDE 0.9% 1,000 ML IV ONE (12:00)
[2024-06-16] MEDS ORDERED: ondansetron HCL 4 MG/2 ML VIAL IV ONE (12:00)
[2024-06-16] MEDS ORDERED: MORPHINE SULFATE 4 MG/ML VIAL IV ONE (12:00)
[2024-06-16 12:04] LABS: BASOPHILS 0.4 % (0-2); EOSINOPHILS 1.2 % (0-6); HEMATOCRIT 48.2 % (35.0-50.0); HEMOGLOBIN 16.8 g/dL (12.0-18.0); LYMPHOCYTES 20.9 % (24-44); MCH 28.2 (27-36); MCHC 34.9 g/dl (30-36); MCV 80.8 fl (81-99); MONOCYTES 6.9 % (0-12); NEUTROPHILS 70.6 % (39-80); PLATELET COUNT 248 K/uL (140-440); RBC 5.96 M/ul (4.3-5.7); RDW 13.6 (10.5-15.0)
[2024-06-16 12:26] LABS: ALBUMIN 4.8 g/dL (3.4-5.0); ALBUMIN/GLOBULIN RATIO 1.33 (1.1-2.4); ANION GAP 15.6 (7-21); BILIRUBIN, TOTAL 0.8 mg/dL (0.2-1.0); CREATININE, SERUM 0.9 mg/dL (0.70-1.30); POTASSIUM 3.6 mmol/L (3.5-5.1); PROTEIN, TOTAL 8.4 g/dL (6.4-8.2)
[2024-06-16 13:07] LABS: BILIRUBIN, URINE NEGATIVE (negative); BLOOD/HGB, URINE NEGATIVE (Negative); KETONE, URINE NEGATIVE (Negative); LEUK ESTERASE, URINE NEGATIVE (negative); NITRITE, URINE NEGATIVE (negative)
[2024-06-16] MEDS ORDERED: CARAFATE1 GM PO (14:09)
[2024-06-16 14:10] VITALS: BP 129/77
--- NOTE | 2024-06-17 22:35 | EKG ---
[facility] [address] [facility] [place] [address] Signed Sinus rhythm with marked sinus arrhythmia ST elevation, consider early repolarization, pericarditis, or injury Abnormal ECG No previous ECGs available Confirmed by Dinesh Mendez MD () on 06/17/2024 10:34:58 PM Electronically Signed By: DINESH MENDEZ MD 06/17/[id number] PATIENT NAME: AN HERNANDEZ AMIE Electrocardiogram DATE OF : 89 PHYSICIAN: DINESH MENDEZ MD REPORT #: [id number] REPORT IS CONFIDENTIAL AND NOT TO BE RELEASED WITHOUT AUTHORIZATION
== END 2024-06-16 14:19 | disposition home or self-care (01) ==
LOC: ED 11:35
PROVIDERS: Emergency Medicine
DX: K21.9 Gastro-esophageal reflux disease without esophagitis (principal); R07.9 Chest pain, unspecified; Z88.0 Allergy status to penicillin; Z88.1 Allergy status to other antibiotic agents; Z79.899 Other long term (current) drug therapy
CPT/HCPCS: 36415; 71045; 74177; 80053; 81003; 83690; 84484; 85025; 93005; 93010; 96361; 99285-25; J2270; J2405; J7030; Q9967